=== PATIENT | female | born 1980 | race Caucasian/White ===

== ENCOUNTER 2016-09-03 22:24 | Emergency (ER) | payer OTHER ==
[~2016-09-03] VITALS: Ht 152.4 cm; Wt 136.3 kg
[~2016-09-03 22:24] MED LIST: CLINDAMYCIN HC300 MG PO
[2016-09-03 23:03] LABS: MCH 27.3 PG (29.0-34.0); MCHC 33.4 G/DL (30.0-36.0); MCV 81.5 FL (83-99); MEAN PLAT.VOLUME 9.7 uM^3 (9.5-12.4); PLATELET COUNT 353 K/uL (156-360); RBC DIS.WIDTH-CV 15.2 % (11.8-14.6); RBC DIS.WIDTH-SD 44.8 % (39-53); RED BLOOD COUNT 4.66 M/uL (3.80-5.20); WHITE BLOOD COUNT 7.9 K/uL (4.1-10.2)
[2016-09-03 23:11] LABS: CHLORIDE 103 mEq/L (99-109); POTASSIUM 3.9 mEq/L (3.7-5.4); SODIUM 138 mEq/L (136-147)
[2016-09-03 23:13] LABS: GLUCOSE 116 mg/dL (70-99)
[2016-09-03 23:14] LABS: ANION GAP 12 MEQ/L (2-14)
[2016-09-03 23:16] LABS: SERUM ETHYL ALCOHOL < 10 mg/dL
[2016-09-03 23:17] LABS: GFR ESTIMATE (CALCULATED) > 59 mL/min/
[2016-09-03 23:18] LABS: UREA NITROGEN (BUN) 8 mg/dL (9-23)
[2016-09-03 23:26] LABS: QUANTITATIVE HCG < 4.0 MIU/ML
[2016-09-03] MEDS ORDERED: GEODON20 MG PO (23:37)
[2016-09-03] MEDS ORDERED: XANAX1 MG PO (23:37)
[2016-09-04 00:02] VITALS: BP 145/99
== END 2016-09-04 00:07 | disposition home or self-care (01) ==
LOC: EME 22:24
PROVIDERS: Emergency Medicine
DX: F32.9 Major depressive disorder, single episode, unspecified (principal); F41.9 Anxiety disorder, unspecified; F17.200 Nicotine dependence, unspecified, uncomplicated
CPT/HCPCS: 80048; 81003; 84702; 85027; 90839; 99281; 99283; G0480

== ENCOUNTER 2016-09-08 05:06 | Emergency (ER) | payer OTHER ==
[~2016-09-08] VITALS: Ht 152.4 cm; Wt 129.8 kg
[~2016-09-08 05:06] MED LIST changes: +GEODON20 MG PO; +XANAX1 MG PO
[2016-09-08 06:43] LABS: HEMATOCRIT 40.7 % (36.0-46.0); MCH 26.8 PG (29.0-34.0); MCHC 33.4 G/DL (30.0-36.0); MCV 80.1 FL (83-99); PLATELET COUNT 328 K/uL (156-360); RBC DIS.WIDTH-CV 14.8 % (11.8-14.6); RBC DIS.WIDTH-SD 42.7 % (39-53); RED BLOOD COUNT 5.08 M/uL (3.80-5.20); WHITE BLOOD COUNT 7.7 K/uL (4.1-10.2)
[2016-09-08] MEDS ORDERED: ZITHROMAX Z-PA250 MG PO (06:48)
[2016-09-08] MEDS ORDERED: PROVENTIL HFA6.7 GM IH (06:48)
[2016-09-08] MEDS ORDERED: PREDNISONE20 MG PO (06:48)
[2016-09-08 06:53] LABS: CHLORIDE 104 mEq/L (99-109); POTASSIUM 3.5 mEq/L (3.7-5.4); SODIUM 137 mEq/L (136-147)
[2016-09-08 06:55] LABS: GLUCOSE 93 mg/dL (70-99)
[2016-09-08 06:56] LABS: ANION GAP 12 MEQ/L (2-14)
[2016-09-08 06:59] LABS: GFR ESTIMATE (CALCULATED) > 59 mL/min/
[2016-09-08 07:00] LABS: UREA NITROGEN (BUN) 9 mg/dL (9-23)
[2016-09-08 07:01] LABS: CREATINE KINASE 71 IU/L (1-294); TOTAL CK 71 IU/L (1-294)
[2016-09-08 07:04] LABS: TROP-I INTERPRETATION NEGATIVE; TROPONIN-I < 0.01 ng/mL (0.0-0.30)
[2016-09-08 07:08] LABS: CK-MB 0.9 ng/mL (0.0-4.9)
[2016-09-08 08:26] VITALS: BP 125/82
== END 2016-09-08 08:28 | disposition home or self-care (01) ==
LOC: EME → EDBD 05:06 → EME 08:28
PROVIDERS: Emergency Medicine
DX: J20.9 Acute bronchitis, unspecified (principal); J06.9 Acute upper respiratory infection, unspecified; F17.200 Nicotine dependence, unspecified, uncomplicated; Z88.2 Allergy status to sulfonamides
CPT/HCPCS: 71010; 80048; 82550 91; 82553; 82803; 83605; 83880; 84484; 85027; 87040; 87801; 93005; 94640; 99281; 99285; J1885; J2405; J2930; J7030